=== PATIENT | female | born 1950 | race Caucasian/White ===

== ENCOUNTER → 2016-10-12 | Outpatient (CLI) | payer OTHER, BC ==
[~2016-10-12] MED LIST: ALPR-411 PO; ANAS1TAB19 PO; ASPEC81 PO; ASPI81TA28 PO; CALC-354 PO; LEVO75TA PO; MULT-614 PO; VTMD1000 PO
--- NOTE | 2016-10-12 12:36 | MAMMOGRAPHY REPORT ---
UNILATERAL RIGHT DIGITAL DIAGNOSTIC MAMMOGRAM TOMOSYNTHESIS WITH CAD AND TARGETED RIGHT ULTRASOUND: 10/12/2016 CLINICAL HISTORY: Annual right mammography. Personal history of left breast cancer status post mast ectomy. Patient reports pain in the lateral right breast while lying on the right side. TECHNIQUE: Right breast tomosynthesis in addition to standard 2D mammography was performed. Current study was also evaluated with a Computer Aided Detection (CAD) system. COMPARISON: Comparison is made to exams dated: 09/10/2015 mammogram, 08/31/2014 mammogram, 08/14/2013 mammogram, 07/30/2010 mammogram, 07/29/2009 mammogram - [facility], and 8. BREAST COMPOSITION: There are scattered areas of fibroglandular density in the right breast. FINDINGS: There are a few punctate benign-appearing microcalcifications. Less conspicuous asymmetry in the far posterior slightly inferior right breast on the MLO view that appears very similar to th e 09/10/2015 exam, 08/31/2014 exam, and less prominent comparing to the 08/04/2011 exam. No new юлия picious mass, architectural distortion or cluster of microcalcifications is seen. Targeted ultrasound was performed in the lateral right breast in the area of pain pointed out by the patient (6:00 through 10:00 axes), normal fibroglandular tissue is seen without a discrete solid o r cystic mass. IMPRESSION: ACR BI-RADS CATEGORY 2: BENIGN, TARGETED ULTRASOUND ACR BI-RADS CATEGORY 2: BENIGN Stable mammographic appearance of the right breast, without mammographic evidence of malignancy. No targeted sonographic evidence of malignancy in the lateral right breast in the area of pain pointed out by the patient. Routine right mammography is recommended in one year and given the personal hi story of left breast cancer, the patient can remain a diagnostic patient in case any additional mamm ographic views and/or ultrasound would be needed. These results and recommendations were discussed with the patient at the time of the exam. Approximately 10% of breast cancers are not detected with mammography. A negative mammographic repor t should not delay biopsy if a clinically suggestive mass is present. Tiff Mckinney M.D. ay/:10/12/2016 10:54:49 Stock Preparation Supervisor: Prabha MEYERS(R)(M), [facility] letter sent: Normal 1/2 BI-RADS Code: ACR BI-RADS Category 2: Benign Ultrasound BI-RADS: ACR BI-RADS Category 2: Benign
== END | disposition home or self-care (01) ==
LOC: C.MAMM 10:04
PROVIDERS: ATTEND Obstetrics & Gynecology
DX: Z12.31 Encounter for screening mammogram for malignant neoplasm of breast (principal); Z90.12 Acquired absence of left breast and nipple; N64.4 Mastodynia; Z85.3 Personal history of malignant neoplasm of breast

== ENCOUNTER → 2016-12-15 | Outpatient (CLI) | payer OTHER, BC ==
[2016-12-15 09:59] LABS: ALT/SGPT 43 U/L (12-78); BLOOD UREA NITROGEN 17 mg/dl (7-18); BUN/CREATININE RATIO 17.8 (10-20); CALCIUM 9.2 mg/dl (8.5-10.1); CARBON DIOXIDE 22 mmol/L (21-32); CHLORIDE 108 mmol/L (98-107); CHOLESTEROL 235 mg/dl (0-200); CREATININE 0.95 mg/dl (0.60-1.20); GLUCOSE 95 mg/dl (70-99); POTASSIUM 4.2 mmol/L (3.5-5.1); SODIUM 141 mmol/L (136-145); TRIGLYCERIDES 171 mg/dl (0-150); VERY LOW DENSITY LIPOPROT CALC 34 mg/dl
[2016-12-15 10:08] LABS: ESTIMATED AVERAGE GLUCOSE 120 mg/dl; HA1C FLAG Normal (Normal)
[2016-12-15 10:10] LABS: ALB/GLOB RATIO 0.9 (0.9-2); ALKALINE PHOSPHATASE 83 U/L (45-117); AST/SGOT 23 U/L (15-37); CHOLESTEROL/HDL RATIO 4.7; HDL CHOLESTEROL 50 mg/dl; LDL CHOLESTEROL CALCULATED 151 mg/dl
[2016-12-16 09:27] LABS: C-REACTIVE PROT HIGHSEN 5.9 MG/L
--- NOTE | 2016-12-22 08:37 | CODING QUERY MEDICAL NECESSITY ---
SUPPORTING DIAGNOSIS NEEDED A supporting diagnosis is required for the test/procedure performed on this patient in order for us to be reimbursed by the patient's insurance. Please provide a supporting diagnosis for the following test/procedure listed below next to the test name along with your signature. *If there is no additional diagnosis for this patient that would support the following test/procedure please document that below next to the test/procedure. Test(s)/Procedure(s) that require a supporting diagnosis: * C-REACTIVE PROTEIN DIAGNOSIS: * DOS: 12/15/16 Provider Signature: Date: Thank you Emily Duggan Health Information Management Once completed, please kindly fax back to [phone] For questions please call [phone]
== END | disposition home or self-care (01) ==
LOC: C.LAB 07:07
PROVIDERS: ATTEND Family Medicine
DX: R73.09 Other abnormal glucose (principal); R53.83 Other fatigue

== ENCOUNTER → 2017-01-04 | Outpatient (CLI) | payer OTHER, BC ==
--- NOTE | 2017-01-04 15:51 | ECHOCARDIOGRAM REPORT ---
*NOTICE TO RECEIVING LIBERTARIAN AGENCY This information is strictly Confidential and protected under [place] law. [place] law prohibits you from making any further disclosure of this information unless further disclosure is expressly permitted by the written consent of the person to whom it pertains or is authorized by law. A general authorization for the release of medical or other information is not sufficient for this purpose. Hospital accepts no responsibility if the information is made available to any other person, INCLUDING THE PATIENT. Interpretation Summary * Name: ZELDA BRUCE Study Date: 01/04/2017 02:22 PM BP: 156/70 mmHg * Patient Location: Cardiopulmonary Lab HR: 76 * : 1950 (M/d/yyyy) Gender: Female Height: 67 in * Age: 66 yrs Ethnicity: [place] Weight: 230 lb * Ordering Physician: Kavitha Daniels * Performed By: Jose Angel Santos RCS * * Reason For Study: Dyspnea * BSA: 2.1 m2 * -- Conclusions -- * Left ventricular systolic function is normal. * Grade I diastolic dysfunction, (abnormal relaxation pattern). * Right ventricular systolic pressure is normal. Procedure Details * A complete two-dimensional transthoracic echocardiogram was performed (2D, M-mode, Doppler and color flow Doppler). Left Ventricle * The left ventricle is normal in size. * There is normal left ventricular wall thickness. * Ejection Fraction = 60-65%. * Left ventricular systolic function is normal. * Grade I diastolic dysfunction, (abnormal relaxation pattern). Right Ventricle * The right ventricle is normal in size and function. Atria * The left atrial size is normal. * Right atrial size is normal. Mitral Valve * The mitral valve is grossly normal. * There is trace mitral regurgitation. Tricuspid Valve * The tricuspid valve is not well visualized. * There is trace tricuspid regurgitation. * Right ventricular systolic pressure is normal. Aortic Valve * The aortic valve is not well visualized. * No hemodynamically significant valvular aortic stenosis. * There is no significant aortic regurgitation. Great Vessels * The aortic root and proximal ascending aorta are normal sized. Pericardium/Pleural * There is no pericardial effusion. MMode 2D Measurements and Calculations IVSd 0.99 cm IVSs 1.3 cm LVIDd 4.6 cm LVIDs 3.0 cm LVPWd 0.90 cm LVPWs 1.3 cm IVS/LVPW 1.1 FS 35.4 % EDV(Teich) 98.2 ml ESV(Teich) 34.6 ml EF(Teich) 64.8 % EDV(cubed) 98.5 ml ESV(cubed) 26.6 ml EF(cubed) 73.0 % % IVS thick 28.7 % % LVPW thick 46.6 % LV mass(C)d 147.6 grams LV mass(C)dI 68.8 grams/m\S\2 LV mass(C)s 122.4 grams LV mass(C)sI 57.1 grams/m\S\2 CO(Teich) 4.4 l/min CI(Teich) 2.0 l/min/m\S\2 SV(Teich) 63.7 ml SI(Teich) 29.7 ml/m\S\2 CO(cubed) 5.0 l/min CI(cubed) 2.3 l/min/m\S\2 SV(cubed) 71.9 ml SI(cubed) 33.5 ml/m\S\2 Ao root diam 3.6 cm Ao root area 10.3 cm\S\2 ACS 1.7 cm LA dimension 3.8 cm LA/Ao 1.1 LVAd ap4 38.2 cm\S\2 LVLd ap4 9.5 cm EDV(MOD-sp4) 125.0 ml LVAs ap4 19.8 cm\S\2 LVLs ap4 7.6 cm ESV(MOD-sp4) 44.0 ml EF(MOD-sp4) 64.8 % LVAd ap2 36.7 cm\S\2 LVLd ap2 9.4 cm EDV(MOD-sp2) 121.0 ml LVAs ap2 17.0 cm\S\2 LVLs ap2 7.3 cm ESV(MOD-sp2) 35.0 ml EF(MOD-sp2) 71.1 % CO(MOD-sp4) 5.6 l/min CI(MOD-sp4) 2.6 l/min/m\S\2 SV(MOD-sp4) 81.0 ml SI(MOD-sp4) 37.7 ml/m\S\2 CO(MOD-sp2) 5.9 l/min CI(MOD-sp2) 2.8 l/min/m\S\2 SV(MOD-sp2) 86.0 ml SI(MOD-sp2) 40.1 ml/m\S\2 Doppler Measurements and Calculations MV E max paco 86.0 cm/sec MV A max paco 94.5 cm/sec MV E/A 0.91 MV P1/2t max paco 79.3 cm/sec MV P1/2t 67.0 msec MVA(P1/2t) 3.3 cm\S\2 MV dec slope 346.6 cm/sec\S\2 MV dec time 0.21 sec Ao V2 max 153.8 cm/sec Ao max PG 9.5 mmHg Ao max PG (full) 4.9 mmHg LV V1 max PG 4.6 mmHg LV V1 max 107.0 cm/sec PA V2 max 98.3 cm/sec PA max PG 3.9 mmHg TR max paco 203.9 cm/sec
== END | disposition home or self-care (01) ==
LOC: C.CPL 13:46
PROVIDERS: ATTEND Family Medicine
DX: R53.83 Other fatigue (principal); R06.00 Dyspnea, unspecified

== ENCOUNTER → 2017-01-07 | Outpatient (CLI) | payer OTHER, BC | END | disposition home or self-care (01) | LOC: C.LAB 14:40 | PROVIDERS: ATTEND Family Medicine | DX: R07.9 Chest pain, unspecified (principal) ==

== ENCOUNTER → 2017-01-28 | Outpatient (CLI) | payer OTHER, BC ==
[~2017-01-28] MED LIST changes: +PERFLUTREN LIPID MICROSPHERE (DEFINITY) IV ONE
--- NOTE | 2017-01-28 19:17 | EXERCISE STRESS ECHO ---
*NOTICE TO RECEIVING DEMOCRAT AGENCY This information is strictly Confidential and protected under [place] law. [place] law prohibits you from making any further disclosure of this information unless further disclosure is expressly permitted by the written consent of the person to whom it pertains or is authorized by law. A general authorization for the release of medical or other information is not sufficient for this purpose. Hospital accepts no responsibility if the information is made available to any other person, INCLUDING THE PATIENT. Interpretation Summary * Name: ZELDA BRUCE Study Date: 01/28/2017 09:56 AM BP: 137/83 mmHg * Patient Location: [facility] HR: 74 * : 1950 (M/d/yyyy) Gender: Female Height: 67 in * Age: 66 yrs Ethnicity: [place] Weight: 230 lb * Ordering Physician: Eulalio Daniels * Referring Physician: Eulalio Daniels * Performed By: Dory Jacques * * Reason For Study: Chest pain, Dyspnea * BSA: 2.1 m2 * The exercise echocardiographic examination is normal without resting left ventricular wall motion abnormalities or inducible ischemia. * The left ventricular ejection fraction increases normally with stress. The left ventricular end-systolic cavity size reduces post-stress (normal response). The left ventricular wall motion with stress is normal. * Baseline ECG was essentially normal. No symptoms were noted. * The stress echocardiogram is negative for inducible ischemia. * The stress ECG response was normal Procedure Details * The study was technically difficult with many images being suboptimal in quality. * A contrast injection of Definity was performed to improve assessment of LV function. * Contrast was injected into an intravenous site in the right arm. * One vial of Definity ultrasound contrast was diluted in normal saline to a total volume of 10 ml. A total of '5' ml of solution was administered during imaging. * Lot # [id number] of Definity utilized for procedure. * Expiration date 01/26. * The attending nurse who injected the contrast agent was IVANNA CHIU RN. Left Ventricle * The left ventricle is normal in size. * Resting wall motion: Normal. Stress wall motion: Appropriate increase in Left ventricular systolic function and decrease in cavity size. No stress induced segmental wall motion abnormalities. * The left ventricular ejection fraction increases normally with stress. The left ventricular end-systolic cavity size reduces post-stress (normal response). The left ventricular wall motion with stress is normal. Stress Parameters * Normal baseline electrocardiogram. * The stress ECG response was normal * The stress portion of this study was personally supervised by the undersigned interpreting physician. * Rest heart rate was '74' BPM. * Rest blood pressure was '137/83' * Maximum heart rate achieved was 142 bpm. * Maximum heart rate was 92 % of maximum age-predicted heart rate. * Maximum blood pressure was '217/64' * Total exercise time was '5:59' * Maximum exercise MET level achieved was '7.00' METS * Maximum treadmill speed was '2.50' miles per hour. * Maximum treadmill elevation was '12.00'% grade. * The patient exhibited leg pain during exercise. * Exercise was stopped due to fatigue. * No complaint of chest pain during or following exercise.
--- NOTE | 2017-02-02 10:44 | CODING QUERY MEDICAL NECESSITY ---
SUPPORTING DIAGNOSIS NEEDED A supporting diagnosis is required for the test/procedure performed on this patient in order for us to be reimbursed by the patient's insurance. Please provide a supporting diagnosis for the following test/procedure listed below next to the test name along with your signature. *If there is no additional diagnosis for this patient that would support the following test/procedure please document that below next to the test/procedure. Test(s)/Procedure(s) that require a supporting diagnosis: DOS 01/28 * Stress Echo DIAGNOSIS: Provider Signature: Date: Thank you Aline Lovett Health Information Management Once completed, please kindly fax back to [phone] For questions please call [phone]
== END | disposition home or self-care (01) ==
LOC: C.CPL 09:30
PROVIDERS: ATTEND Family Medicine
DX: R06.9 Unspecified abnormalities of breathing (principal); R07.89 Other chest pain; R06.09 Other forms of dyspnea

== ENCOUNTER → 2017-06-28 | Outpatient (CLI) | payer OTHER, BC ==
[~2017-06-28] MED LIST changes: -PERFLUTREN LIPID MICROSPHERE (DEFINITY) IV ONE
[2017-06-28 09:41] LABS: BASO % 0.5 %; BASO ABS # 0.04 K/uL (0-0.2); COMPLETE YES; EOS % 2.3 %; HEMATOCRIT 41.1 % (37-47); IG% 0.4 %; LYMPH % 30.6 %; LYMPH ABS # 2.42 K/uL (1.2-3.4); MEAN CELL VOLUME 93.6 fL (80-100); MEAN CORPUSCULAR HEMOGLOBIN 31.2 pg (25-34); MEAN CORPUSCULAR HGB CONC 33.3 g/dl (32-36); MEAN PLATELET VOLUME 9.8 fL (7.4-10.4); MONO % 10.2 %; PLATELET COUNT 270 K/uL (130-400); RED BLOOD COUNT 4.39 M/uL (4.2-5.4); WHITE BLOOD COUNT 7.92 K/uL (4.8-10.8)
[2017-06-28 10:02] LABS: ALT/SGPT 39 U/L (12-78); BLOOD UREA NITROGEN 19 mg/dl (7-18); BUN/CREATININE RATIO 19.3 (10-20); CALCIUM 9.6 mg/dl (8.5-10.1); CARBON DIOXIDE 29 mmol/L (21-32); CHLORIDE 106 mmol/L (98-107); CHOLESTEROL 246 mg/dl (0-200); CREATININE 0.98 mg/dl (0.60-1.20); ESTIMATED AVERAGE GLUCOSE 117 mg/dl; GLUCOSE 96 mg/dl (70-99); HA1C FLAG Normal (Normal); POTASSIUM 4.2 mmol/L (3.5-5.1); SODIUM 140 mmol/L (136-145); TRIGLYCERIDES 152 mg/dl (0-150); URIC ACID 5.8 mg/dl (2.6-7.2); VERY LOW DENSITY LIPOPROT CALC 30 mg/dl
[2017-06-28 10:12] LABS: ALB/GLOB RATIO 0.9 (0.9-2); ALKALINE PHOSPHATASE 89 U/L (45-117); AST/SGOT 20 U/L (15-37); CHOLESTEROL/HDL RATIO 4.8; HDL CHOLESTEROL 51 mg/dl; LDL CHOLESTEROL CALCULATED 165 mg/dl; TOTAL IRON BINDING CAPACITY 277 mcg/dl (250-450)
== END | disposition home or self-care (01) ==
LOC: C.LAB 07:13
PROVIDERS: ATTEND Family Medicine
DX: R73.09 Other abnormal glucose (principal); E55.9 Vitamin D deficiency, unspecified; D51.9 Vitamin B12 deficiency anemia, unspecified; R53.83 Other fatigue; E78.9 Disorder of lipoprotein metabolism, unspecified

== ENCOUNTER → 2017-10-05 | Outpatient (CLI) | payer OTHER, BC ==
--- NOTE | 2017-10-05 10:49 | DIAGNOSTIC IMAGING REPORT ---
R LOWER EXT JOINT WITHOUT CLINICAL HISTORY: RT ANKLE PAIN pain TECHNIQUE: Multiaxial MRI acquisition COMPARISON STUDY: None FINDINGS: Small heel spur. Signal characteristics of the plantar fascia are unremarkable. Peroneal as well as posterior tibial tendons appear to be intact. Mild edematous change of the subtalar interosseous ligaments with mild surrounding soft tissue edema. Mild edema of the subchondral aspect of the mid subtalar articulation. All remaining ligamentous and tendinous structures are unremarkable. Signal characteristics of all remaining osseous structures are unremarkable. IMPRESSION: 1. Mild edema of the subtalar interosseous ligament. 2. Mild contusion versus early subchondral lesion of the subtalar subchondral surface of the calcaneus. 3. Remainder the study is unremarkable. All major ligamentous and tendinous structures are intact. The above report was generated using voice recognition software. It may contain grammatical, syntax or spelling errors. Electronically signed by: Dougie Monahan M.D. 10/05/2017 10:48 AM Dictated Date/Time: 10/05/2017 10:40 AM
== END | disposition home or self-care (01) ==
LOC: C.MRIBC 09:40
PROVIDERS: ATTEND Orthopaedic Surgery
DX: M79.671 Pain in right foot (principal); R60.0 Localized edema; R93.7 Abnormal findings on diagnostic imaging of other parts of musculoskeletal system

== ENCOUNTER → 2017-10-18 | Outpatient (CLI) | payer OTHER, BC ==
--- NOTE | 2017-10-18 15:09 | MAMMOGRAPHY REPORT ---
UNILATERAL RIGHT DIGITAL DIAGNOSTIC MAMMOGRAM TOMOSYNTHESIS WITH CAD: 10/18/2017 CLINICAL HISTORY: Annual mammographic evaluation of the right breast. Patient again reports persiste nt intermittent pain with pressure/lying on right side, in the far lateral right breast, similar to t he area ultrasounded during last year's diagnostic evaluation. Personal history of left breast cance r status post mastectomy. TECHNIQUE: Right breast tomosynthesis in addition to standard 2D mammography was performed. Current lopez hoffman was also evaluated with a Computer Aided Detection (CAD) system. COMPARISON: Comparison is made to exams dated: 10/12/2016 mammogram, 10/12/2016 ultrasound, 09/10/2015 ul trasound, 09/10/2015 mammogram, 08/31/2014 mammogram, and 08/14/2013 mammogram - [facility]. BREAST COMPOSITION: There are scattered areas of fibroglandular density in the right breast. FINDINGS: The present, pattern of the right breast is similar to prior mammograms. No new suspicious mass, architectural distortion, asymmetry or cluster of microcalcifications is seen. IMPRESSION: ACR BI-RADS CATEGORY 2: BENIGN 1. Stable mammographic appearance of the right breast, without mammographic evidence of malignancy. Recommend right diagnostic tomosynthesis mammograms in one year, given the personal history of left breast cancer. 2. Given that the patient's pain in the far lateral right breast, worse while lying on the right jonatan e, is similar to last year's evaluation, repeat ultrasound was not performed. Continued clinical mon itoring and clinical follow-up is recommended. These results and recommendations were discussed with the patient at the time of the exam. Approximately 10% of breast cancers are not detected with mammography. A negative mammographic report should not delay biopsy if a clinically suggestive mass is present. Tiff Mckinney M.D. ay/:10/18/2017 11:09:21 Die Try Out Worker: Nelly MEYERS(Mandi)(Tomy), [facility] letter sent: Normal 1/2 BI-RADS Code: ACR BI-RADS Category 2: Benign
== END | disposition home or self-care (01) ==
LOC: C.MAMM 10:20
PROVIDERS: ATTEND Obstetrics & Gynecology
DX: N64.4 Mastodynia (principal); Z85.3 Personal history of malignant neoplasm of breast; Z90.12 Acquired absence of left breast and nipple

== ENCOUNTER → 2017-11-29 | Outpatient (CLI) | payer OTHER, BC ==
[2017-11-29 09:42] LABS: BASO % 0.5 %; BASO ABS # 0.04 K/uL (0-0.2); EOS % 1.7 %; EOS ABS # 0.14 K/uL (0-0.5); HEMATOCRIT 40.5 % (37-47); HEMOGLOBIN 13.7 g/dL (12.0-16.0); IG# 0.04 K/uL (0.00-0.02); LYMPH % 31.9 %; LYMPH ABS # 2.66 K/uL (1.2-3.4); MEAN CELL VOLUME 91.8 fL (80-100); MEAN CORPUSCULAR HEMOGLOBIN 31.1 pg (25-34); MEAN CORPUSCULAR HGB CONC 33.8 g/dl (32-36); MEAN PLATELET VOLUME 9.7 fL (7.4-10.4); MONO % 8.6 %; MONO ABS # 0.72 K/uL (0.11-0.59); NEUT % 56.8 %; NEUT ABS # 4.75 K/uL (1.4-6.5); PLATELET COUNT 282 K/uL (130-400); RED CELL DISTRIBUTION WIDTH CV 12.8 % (11.5-14.5); WHITE BLOOD COUNT 8.35 K/uL (4.8-10.8)
[2017-11-29 10:08] LABS: ALBUMIN 3.5 gm/dl (3.4-5.0); ALKALINE PHOSPHATASE 93 U/L (45-117); ALT/SGPT 46 U/L (12-78); AST/SGOT 23 U/L (15-37); BLOOD UREA NITROGEN 23 mg/dl (7-18); CALCIUM 9.6 mg/dl (8.5-10.1); CARBON DIOXIDE 27 mmol/L (21-32); CHOLESTEROL 259 mg/dl (0-200); CREATININE 1.03 mg/dl (0.60-1.20); GLUCOSE 104 mg/dl (70-99); LDL CHOLESTEROL CALCULATED 173 mg/dl; POTASSIUM 4.1 mmol/L (3.5-5.1); SODIUM 138 mmol/L (136-145); TOTAL PROTEIN 7.7 gm/dl (6.4-8.2)
[2017-11-29 10:17] LABS: TRANSFERRIN 223 mg/dl (200-360)
[2017-11-29 10:22] LABS: HEMOGLOBIN A1C 5.8 % (4.5-5.6)
== END | disposition home or self-care (01) ==
LOC: C.LAB 07:20
PROVIDERS: ATTEND Family Medicine
DX: R73.09 Other abnormal glucose (principal); E55.9 Vitamin D deficiency, unspecified; D51.9 Vitamin B12 deficiency anemia, unspecified; E78.9 Disorder of lipoprotein metabolism, unspecified; R53.83 Other fatigue

== ENCOUNTER → 2018-01-10 | Outpatient (CLI) | payer OTHER, BC ==
[~2018-01-10] MED LIST changes: +OPTIRAY 320 IV PRN
--- NOTE | 2018-01-10 08:26 | DIAGNOSTIC IMAGING REPORT ---
(BARIUM SWALLOW) ESOPHAGUS CLINICAL HISTORY: R07.0 Throat [id number] FEMALE COMPARISON STUDY: None FLUOROSCOPY TIME: 1.3 minutes. NUMBER OF FLUOROSCOPIC IMAGES: 23 FINDINGS: The patient swallowed effervescent granules and barium without difficulty. No esophageal masses or ulcerations were visualized. The swallowing mechanics appear normal. There was no aspiration. Degenerative changes are present within the cervical spine. No reflux is identified. There was dysmotility. The patient was administered 1/2 inch barium tablet. This was swallowed without difficulty and passed freely into the stomach. IMPRESSION: Esophageal dysmotility. Degenerative changes within the cervical spine. No esophageal masses or strictures identified. Electronically signed by: Elmo Horta M.D. 01/10/2018 8:25 AM Dictated Date/Time: 01/10/2018 8:23 AM
--- NOTE | 2018-01-10 08:47 | DIAGNOSTIC IMAGING REPORT ---
CT SOFT TISSUE NECK WITH CT DOSE: 658.13 mGy.cm CLINICAL HISTORY: R07.0 Throat pain, soreness, left sided fullness. O TECHNIQUE: Helical images were acquired during intravenous administration of 94 cc of Optiray 320. A dose lowering technique was utilized adhering to the principles of ALARA. COMPARISON STUDY: None. FINDINGS: There is mild right apical pulmonary scarring. There is a 4 mm left lobe thyroid nodule. No salivary gland masses are visualized. There are no pathologically enlarged cervical lymph nodes. No necrotic nodes are evident. There are no fluid collections suspicious for abscess. There is no evidence of airway compromise. No mucosal space masses are visualized. Degenerative changes are present within the cervical spine with anterior osteophytic spurring most pronounced at the C6-7 level. IMPRESSION: 1. 4 mm left lobe thyroid nodule. Current recommendations indicate no need for additional workup 2. No pathologic neck masses identified. No evidence of pathologic adenopathy. Electronically signed by: Elmo Horta M.D. 01/10/2018 8:46 AM Dictated Date/Time: 01/10/2018 8:40 AM
== END | disposition home or self-care (01) ==
LOC: C.RAD 07:45
DX: R07.0 Pain in throat (principal); K22.4 Dyskinesia of esophagus

== ENCOUNTER → 2018-01-31 | Outpatient (CLI) | payer OTHER, BC ==
[~2018-01-31] MED LIST changes: -OPTIRAY 320 IV PRN
[2018-01-31 15:35] LABS: BASO % 0.3 %; BASO ABS # 0.03 K/uL (0-0.2); EOS % 2.2 %; HEMATOCRIT 40.3 % (37-47); HEMOGLOBIN 13.3 g/dL (12.0-16.0); IG# 0.03 K/uL (0.00-0.02); LYMPH % 28.9 %; LYMPH ABS # 2.57 K/uL (1.2-3.4); MEAN CELL VOLUME 93.7 fL (80-100); MEAN CORPUSCULAR HEMOGLOBIN 30.9 pg (25-34); MEAN PLATELET VOLUME 9.5 fL (7.4-10.4); MONO % 9.1 %; MONO ABS # 0.81 K/uL (0.11-0.59); NEUT % 59.2 %; NEUT ABS # 5.25 K/uL (1.4-6.5); PLATELET COUNT 251 K/uL (130-400); RED CELL DISTRIBUTION WIDTH CV 12.7 % (11.5-14.5); RED CELL DISTRIBUTION WIDTH SD 43.4 fL (36.4-46.3); WHITE BLOOD COUNT 8.89 K/uL (4.8-10.8)
[2018-01-31 16:06] LABS: ALBUMIN 3.4 gm/dl (3.4-5.0); ALT/SGPT 39 U/L (12-78); BLOOD UREA NITROGEN 19 mg/dl (7-18); CARBON DIOXIDE 29 mmol/L (21-32); CREATININE 1.08 mg/dl (0.60-1.20); GLUCOSE 103 mg/dl (70-99); POTASSIUM 3.7 mmol/L (3.5-5.1); SODIUM 140 mmol/L (136-145)
[2018-01-31 16:11] LABS: ALKALINE PHOSPHATASE 87 U/L (45-117); AST/SGOT 18 U/L (15-37); TOTAL PROTEIN 7.6 gm/dl (6.4-8.2)
== END | disposition home or self-care (01) ==
LOC: C.LAB 14:36
PROVIDERS: ATTEND Nurse Practitioner Family
DX: Z85.3 Personal history of malignant neoplasm of breast (principal)